=== PATIENT | female | born 1995 | race Caucasian/White ===

== ENCOUNTER 2017-07-09 09:02 | Emergency (ER) | payer OTHER ==
[~2017-07-09] VITALS: Ht 162.6 cm; Wt 95.5 kg
[2017-07-09] MEDS ORDERED: LEVE500T53 PO (09:10)
[2017-07-09 09:39] VITALS: BP 119/67
[2017-07-09 10:03] LABS: BASOPHILS % (AUTO) 0.3 % (0.0-2.0); HEMOGLOBIN 12.3 g/dL (12.0-16.0); LYMPHOCYTES # (AUTO) 2.7 K/uL (1.0-4.8); LYMPHOCYTES % (AUTO) 30.8 % (22.0-44.0); MEAN CORPUSCULAR HEMOGLOBIN 30.7 pg (26.0-34.0); MEAN CORPUSCULAR VOLUME 87 fL (80-100); MONOCYTES # (AUTO) 0.5 K/uL (0.1-1.0); MONOCYTES % (AUTO) 6.3 % (2.0-9.0); NEUTROPHILS # (AUTO) 5.3 K/uL (1.8-7.7); NEUTROPHILS % (AUTO) 61.6 % (40.0-70.0); PLATELET COUNT (AUTO) 460 K/uL (150-450); RED CELL DISTRIBUTION WIDTH 12.9 % (11.5-14.5)
== END 2017-07-09 10:46 | disposition home or self-care (01) ==
LOC: EMS 09:05
DX: R10.32 Left lower quadrant pain (principal); L73.9 Follicular disorder, unspecified; K14.8 Other diseases of tongue; F15.90 Other stimulant use, unspecified, uncomplicated; F17.210 Nicotine dependence, cigarettes, uncomplicated
CPT/HCPCS: 86901; 99284

== ENCOUNTER 2022-09-19 00:55 | Emergency (ER) | payer OTHER ==
[~2022-09-19] VITALS: Ht 162.6 cm; Wt 75.0 kg
[~2022-09-19 00:55] MED LIST: LEVE500T20 PO
[2022-09-19] MEDS ORDERED: PHENAZOPYRIDINE HCL 100 MG TABLET PO ONE (01:30)
[2022-09-19] MEDS ORDERED: CEPHALEXIN MONOHYDRATE 500 MG CAPSULE PO ONE (01:30)
[2022-09-19] MEDS ORDERED: LevETIRAcetam 500 MG TABLET PO ONE (01:30)
[2022-09-19] MEDS ORDERED: PHEN-674 PO (01:35)
[2022-09-19] MEDS ORDERED: MICO45CR76 VG (01:35)
[2022-09-19] MEDS ORDERED: CEPH-558 PO (01:35)
[2022-09-19] MEDS ORDERED: LEVE500T20 PO (01:35)
[2022-09-19] MEDS ORDERED: NALO4SPR NASAL (01:35)
[2022-09-19 01:47] LABS: BASOPHILS % (AUTO) 0.6 % (0.0-2.0); EOSINOPHILS % (AUTO) 4.2 % (1.0-6.0); HEMATOCRIT 37.6 % (36-46); HEMOGLOBIN 13.3 g/dL (12.0-16.0); LYMPHOCYTES # (AUTO) 3.3 K/uL (1.0-4.8); LYMPHOCYTES % (AUTO) 39.1 % (22.0-44.0); MEAN CORPUSCULAR HEMOGLOBIN 30.7 pg (26.0-34.0); MEAN CORPUSCULAR HGB CONC 35.4 G/dL (31.0-37.0); MEAN CORPUSCULAR VOLUME 87 fL (80-100); MONOCYTES # (AUTO) 0.4 K/uL (0.1-1.0); MONOCYTES % (AUTO) 5.3 % (2.0-9.0); NEUTROPHILS # (AUTO) 4.3 K/uL (1.8-7.7); NEUTROPHILS % (AUTO) 50.8 % (40.0-70.0); PLATELET COUNT (AUTO) 424 K/uL (150-450); RED BLOOD CELL COUNT(AUTO) 4.34 MIL/uL (4.00-5.20)
[2022-09-19 01:54] LABS: CARBON DIOXIDE 28 mmol/L (22-29)
[2022-09-19 02:03] LABS: APPEARANCE,URINE CLEAR (CLEAR); BILIRUBIN,URINE NEGATIVE (NEGATIVE); GLUCOSE, URINE (UA) NEGATIVE (NEGATIVE); KETONES,URINE NEGATIVE (NEGATIVE); LEUKOCYTE ESTERASE ,URINE NEGATIVE (NEGATIVE); NITRATE,URINE NEGATIVE (NEGATIVE); OCCULT BLOOD,URINE NEGATIVE (NEGATIVE); PH,URINE 6.5 (5.0-8.0); PROTEIN,URINE NEGATIVE (NEGATIVE); SPECIFIC GRAVITIY, URINE 1.023 (1.003-1.030); UROBILINOGEN,URINE <=1.0 mg/dL (<=1.0)
[2022-09-19 02:05] LABS: ALANINE AMINOTRANSFERASE 35 U/L (12-78); ALBUMIN 4.2 g/dL (3.4-5.0); ALKALINE PHOSPHATASE 74 U/L (46-116); ANION GAP 7 mmol/L (8-16); ASPARTATE AMINOTRANSFERASE 31 U/L (15-37); BILIRUBIN,TOTAL 0.2 mg/dL (0.1-1.0); CHLORIDE 104 mmol/L (98-107); CREATININE 0.84 mg/dL (0.60-1.30); GLOMERULAR FILTR. RATE CALC > 60 mL/min (>60); GLUCOSE,RANDOM 106 mg/dL (70-110); POTASSIUM 4.1 mmol/L (3.5-5.1); SODIUM SERUM 139 mmol/L (136-145); TOTAL PROTEIN, SERUM 7.7 g/dL (6.4-8.2); UREA NITROGEN, BLOOD 15 mg/dL (7-18)
[2022-09-19 02:24] LABS: AMPHET/METH SCREEN,URINE POSITIVE (NEGATIVE); BARBITURATE SCREEN, URINE NEGATIVE (NEGATIVE); BENZODIAZEPINES SCREEN,URINE NEGATIVE (NEGATIVE); CANNABINOID SCREEN,URINE NEGATIVE (NEGATIVE); COCAINE SCREEN,URINE NEGATIVE (NEGATIVE); METHADONE SCREEN, URINE NEGATIVE (NEGATIVE); OPIATE SCREEN,URINE NEGATIVE (NEGATIVE); PHENCYCLIDINE SCREEN,URINE NEGATIVE (NEGATIVE)
[2022-09-19 02:30] LABS: BACTERIA,URINE None Seen /HPF (None Seen); RBC,URINE None Seen /HPF (0-2); SQUAMOUS EPITHELIAL CELL,UR Few /LPF (None Seen); WBC,URINE None Seen /HPF (0-5)
[2022-09-19] MEDS ORDERED: CLOB15OI17 TP (02:33)
[2022-09-19 02:43] VITALS: BP 126/78
== END 2022-09-19 02:46 | disposition home or self-care (01) ==
LOC: EMS 00:55
DX: G40.909 Epilepsy, unspecified, not intractable, without status epilepticus (principal); N39.0 Urinary tract infection, site not specified; L30.9 Dermatitis, unspecified; F15.10 Other stimulant abuse, uncomplicated; F17.210 Nicotine dependence, cigarettes, uncomplicated; Z98.890 Other specified postprocedural states
CPT/HCPCS: 99284; 99406; 80053; 81001; 84703; 85025; 36415; 80307 ×2; G0480